=== PATIENT | male | born 1945 | race American Indian/Alaskan Native ===

== ENCOUNTER 2017-06-01 22:22 | Emergency (ER) | payer MEDICARE ==
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
[2017-06-02] MEDS ORDERED: ADRENALIN ONE (10:50)
== END 2017-06-02 01:33 ==
LOC: ED 22:22
DX: I46.9 Cardiac arrest, cause unspecified (principal); E11.22 Type 2 diabetes mellitus with diabetic chronic kidney disease; I12.9 Hypertensive chronic kidney disease with stage 1 through stage 4 chronic kidney disease, or unspecified chronic kidney disease; N18.9 Chronic kidney disease, unspecified
CPT/HCPCS: 92950; 99285; J0171